=== PATIENT | male | born 1975 | race Caucasian/White ===

== ENCOUNTER 2020-05-28 21:32 | Emergency (ER) | payer OTHER ==
[~2020-05-28] VITALS: Ht 195.6 cm; Wt 105.0 kg
[2020-05-28 21:35] VITALS: BP 120/84
--- NOTE | 2020-05-28 21:46 | NUR ---
PATIENT WALKED BACK FROM TRIAGE WITH CHIEF C/O RIGHT-SIDED HEAD PAIN. PATIENT DESCRIBES PAIN A BURNING/SHOOTING PAIN. PATIENT STATES HE STARTED HAVING A LITTLE BIT OF PAIN EARLIER TODAY OFF AND ON, BUT THIS EVENING IT INTENSIFIED. PATIENT DENIES BLURRY VISION, DENIES GARZA, DENIES NUMBNESS/TINGLING. NO SIGNS OF ACUTE DISTRESS, PATIENT SITTING IN CHAIR, CALL LIGHT WITHIN REACH.
--- NOTE | 2020-05-28 22:09 | NUR ---
ERMD AT BEDSIDE FOR EVALUATION.
[2020-05-28] MEDS ORDERED: LIDOCAINE-MPF 1%, 5ML ONE (22:14)
--- NOTE | 2020-05-28 22:25 | NUR ---
PATIENT TO CT.
--- NOTE | 2020-05-28 23:19 | NUR ---
Patient given discharge instructions and they have confirmed that they understand the instructions. Patient stable and ambulatory with steady gait from ED to private vehicle.
== END 2020-05-28 23:20 | disposition home or self-care (01) ==
LOC: ED 22:49
DX: G44.219 Episodic tension-type headache, not intractable (principal); J45.909 Unspecified asthma, uncomplicated
CPT/HCPCS: 64405; 70450; 99284